=== PATIENT | female | born 1950 | race Two or more races ===

== ENCOUNTER → 2025-02-14 | Outpatient (CLI) | payer MEDICARE, MEDICAID | END | disposition home or self-care (01) | LOC: Rad HDHVI 14:37 | PROVIDERS: ATTEND Internal Medicine Cardiovascular Disease | DX: I73.9 Peripheral vascular disease, unspecified (principal); M79.661 Pain in right lower leg; M79.662 Pain in left lower leg; I10 Essential (primary) hypertension; E78.5 Hyperlipidemia, unspecified | CPT/HCPCS: 93925 ==

== ENCOUNTER → 2025-02-16 | Outpatient (CLI) | payer MEDICARE, MEDICAID ==
--- NOTE | 2025-02-16 13:35 | DVHSR ---
APPROVED REPORT EXAM: Two-dimensional and M-mode echocardiogram with Doppler and color Doppler. DIMENSIONS LVDd4.7 (3.8-5.7cm)LA (2D)3.8 (1.9-4.0cm)Aortic Root2.9 (2.0-3.7cm) LVDs3.2 (2.5-4.0cm)LA (MM) (1.9-4.0cm)Aortic Cusp Exc1.4 (1.5-2.0cm) EF (%) 60.0 (55-70%)Rt. Atrium3.4 (1.9-4.0cm)Asc. Aorta cm IVSd0.9 (0.7-1.1cm)RV (D) (1.8-2.4cm) PWd0.8 (0.7-1.1cm) Mitral Valve MitralMitral Stenosis E wave0.80m/sMV Mean GR.mmHg A wave1.20m/sMV Peak GR.mmHg E/A ratio0.72D MVAcm2 Aortic Valve Aortic ValveAortic Stenosis V10.90m/Amelia Mean GR.5mmHg V21.60m/Amelia Peak GR.11mmHg LVOT Diameter1.8 (1.8-2.4cm)Doppler AVA1.43cm2 Pulmonic Valve V20.70m/s Tricuspid Valve TR Velocity2.20m/s [id number] LEFT VENTRICLE The left ventricle is normal size. The left ventricle is normal in structure and function. The Ejection Fraction is within normal limits. RIGHT VENTRICLE The right ventricle is normal size. ATRIA The left atrial size is normal. The right atrium size is normal. The interatrial septum is intact with no evidence for an atrial septal defect. MITRAL VALVE The mitral valve is normal in structure and function. There is no mitral valve regurgitation noted. PULMONIC VALVE The pulmonic valve is not well visualized. TRICUSPID VALVE The tricuspid valve is grossly normal. AORTIC VALVE The aortic valve is calcified but appears to open well. No aortic regurgitation is present. GREAT VESSELS The aortic root is normal size. PERICARDIAL EFFUSION There is no pericardial effusion. Conclusion EF 50% MILD AV CALCIFICATION MILD AV STENOSIS MILD MAC
== END | disposition home or self-care (01) ==
LOC: Rad HDHVI 11:07
PROVIDERS: ATTEND Internal Medicine Cardiovascular Disease
DX: I35.8 Other nonrheumatic aortic valve disorders (principal); I10 Essential (primary) hypertension
CPT/HCPCS: 93306

== ENCOUNTER 2025-04-02 10:08 | Outpatient (CLI) | payer MEDICARE, MEDICAID ==
[2025-04-02 10:20] VITALS: BP 146/68; PULSE 68; RESP 16; O2SAT 98
[2025-04-02] MEDS ORDERED: SEMA2INJ3 SC (12:16)
[2025-04-02] MEDS ORDERED: INSU1INJ19 SC (12:16)
[2025-04-02] MEDS ORDERED: LOSA-534 PO (12:16)
[2025-04-02] MEDS ORDERED: METO-158 PO (12:16)
[2025-04-02] MEDS ORDERED: MULT-1018 PO (12:18)
--- NOTE | 2025-04-02 12:58 | DVH ---
EXAM: XY CHEST TWO VIEWS ROUTINE HISTORY: PRE OP CARDIAC CLEARANCE COMPARISON: None TECHNIQUE: Frontal and lateral views of the chest were performed. FINDINGS: No pneumothorax, pulmonary edema, pleural effusions, or consolidative infiltrates. The heart is not enlarged. The aortic arch is calcific. No fractures are identified about the bony thorax. There is mo derate thoracic degenerative disc disease. IMPRESSION: 1. No acute intrathoracic process. 2. Atherosclerotic vascular disease. 3. Thoracic spondylosis.
== END 2025-04-02 17:00 | disposition home or self-care (01) ==
LOC: Rad HDHVI 10:08
PROVIDERS: ATTEND Internal Medicine Cardiovascular Disease
DX: Z01.818 Encounter for other preprocedural examination (principal); I70.0 Atherosclerosis of aorta; I25.10 Atherosclerotic heart disease of native coronary artery without angina pectoris; I73.9 Peripheral vascular disease, unspecified; M51.34 Other intervertebral disc degeneration, thoracic region; M47.814 Spondylosis without myelopathy or radiculopathy, thoracic region
CPT/HCPCS: 71046; G0463

== ENCOUNTER 2025-04-05 06:59 | Day surgery (SDC) | payer MEDICARE, MEDICAID ==
[2025-04-02 12:59] LABS: Basophils # (auto) 0.1 10 ^3/uL (0-0.2); Basophils % (auto) 1.1 % (0.0-2.0); Eosinophils # (auto) 0.2 10 ^3/uL (0-0.8); Hematocrit 44.1 % (36.0-46.0); Hemoglobin 15.3 g/dL (12.2-16.2); Lymphocytes # (auto) 3.1 10 ^3/uL (0.4-5.4); Lymphocytes % (auto) 39.2 % (10.0-50.0); Mean Corpuscular Hgb Conc. 34.6 g/dL (32.0-36.0); Mean Corpuscular Volume 92.6 fL (80.0-100.0); Monocytes # (auto) 0.4 10 ^3/uL (0-1.3); Monocytes % (auto) 5.5 % (0.0-12.0); Neutrophils # (auto) 4.1 10 ^3/uL (1.6-8.6); Neutrophils % (auto) 52.2 % (37.0-80.0); Nucleated Red Blood Cells % 0.1 %; Platelet Count (auto) 226 10^3/uL (140-450); Red Blood Cells 4.76 10^6/uL (4.0-5.20); White Blood Cell 7.8 10^3/uL (4.4-10.8)
[2025-04-02 13:14] LABS: INR 1.01 (0.9-1.15); Partial Thromboplastin Time 24.8 SEC (24.5-34.5); Prothrombin Time 10.7 sec (9.3-11.8)
[2025-04-02 13:18] LABS: Potassium 4.5 mmol/L (3.5-5.1); Sodium 144 mmol/L (136-145)
[2025-04-02 13:19] LABS: Anion Gap 8 (5-15); Calcium 9.7 mg/dL (8.7-10.4); Carbon Dioxide 29 mmol/L (20-31)
[2025-04-02 13:21] LABS: Chloride 107 mmol/L (98-107)
[2025-04-02 13:25] LABS: BUN/Creatinine Ratio 22.9 (10.0-20.0); Blood Urea Nitrogen 19 mg/dL (9-23); Glucose 94 mg/dL (74-106)
[2025-04-05] VITALS (9 sets, daily range): BP systolic 140–167; BP diastolic 64–82; PULSE 68–75; RESP 12–14; TEMP 97.8; O2SAT 91–99
[~2025-04-05] VITALS: Ht 157.5 cm; Wt 60.8 kg
[~2025-04-05 06:59] MED LIST: INSU1INJ19 SC; LOSA-534 PO; METO-158 PO; MULT-1018 PO; SEMA2INJ3 SC
[2025-04-05] MEDS: IOHEXOL 350 MG/ML 100ML IJ ONE ×3 (07:41→09:00)
[2025-04-05] MEDS: LIDOCAINE 2%HCL (LOCAL ANESTH.) INJ 20ML MDV ONE ×2 (07:42→07:46)
[2025-04-05] MEDS: fentaNYL CITRATE 100 MCG/2 ML VL ONE (07:43)
[2025-04-05] MEDS: ANGIOMAX 250 MG VIAL IV ONE (07:43)
[2025-04-05] MEDS: SODIUM CHL 0.9% 50 ML ONE (07:44)
[2025-04-05] MEDS: MIDAZOLAM HCL 2MG/2ML 2ml VIAL (1mg/ml) ONE (07:44)
[2025-04-05] MEDS: NITROGLYCERIN 0.4MG/DOSE SPRAY 4.9GM ONE (08:19)
[2025-04-05] MEDS: CLOPIDOGREL BISULFATE 75 MG TAB ONE (09:01)
[2025-04-05] MEDS: ASPirin 325 MG TAB ONE (09:01)
--- NOTE | 2025-04-05 09:20 | DVHOP ---
DATE OF SURGERY: 04/05/2025 PROCEDURES PERFORMED: * Abdominal aortography * Selective left and right lower extremity angiography. DESCRIPTION OF PROCEDURE: The patient was prepped and draped under sterile condition. Then, 1% Xylocaine was used to anesthetize the right groin. Using a Cook needle right femoral artery was engaged, with Seldinger technique, a 6-Greek sheath in the right femoral artery. Using a 6-Greek sheath, angiography of the right lower extremity was performed. Then, using a RIM catheter, contralateral left iliac was then cannulated and angiography of the left lower extremity was performed. There were no complications. The patient tolerated the procedure well. RESULTS: * Right lower extremity angiography revealed patent right common iliac, patent right external and internal iliac, patent right superficial femoral artery, patent right profunda, patent right tibioperoneal trunk with 3-vessel distal runoff. * Left lower extremity, however, showed occluded a short segment of the left common iliac, but reconstitutes at the level of the external iliac, with patent left SFA, patent left profunda, patent left tibioperoneal trunk with 3-vessel distal runoff. At this time, the patient will require antegrade approach to revascularize the short occluded segment of the iliac on the left side. The patient will require antegrade approach for angioplasty of the left lower extremity occluded segment of the common left iliac. Boris Cote MD SA/OMAR TID: [id number] RECEIPT: [id number]
--- NOTE | 2025-04-05 09:22 | DVHOP ---
DATE OF SURGERY: 04/05/2025 PROCEDURES PERFORMED: * Selective left and right coronary angiography. * Ventriculogram. * Right iliac angiography. * FFR of the distal right coronary artery. * Shockwave thrombectomy of the obtuse marginal 1 with a 2.5 x 13 mm shock wave thrombectomy catheter followed by angioplasty with stent placement of the 2.75 x 22 mm Hubert Bulloch stent of the obtuse marginal one proximal segment. * Conscious sedation was given. DESCRIPTION OF PROCEDURE: The patient was prepped and draped in sterile condition. A 1% Xylocaine was used to anesthetize the right groin. Using Cook needle, the right femoral artery was engaged using Seldinger technique. A 6-Namibian sheath was placed in the right femoral artery. Using a 6-Namibian JL4 catheter and a 6-Namibian JR4 catheter, selective left and right coronary angiography was performed. Using a 6-Namibian pigtail catheter, ventriculogram was done. Then, the 6-Namibian diagnostic system was exchanged for a 6-Namibian interventional system. Using a 6-Namibian XP 3.0 guide catheter, left main was cannulated using a ChoICE PT extra support wire. The lesion was then crossed. It was then thrombectomized using a 2.5 x 13 mm thrombectomy shockwave catheter at 4 atmospheres. Following the dilatation, a 2.5 x 15 mm Euphora balloon was used to post dilate the artery as well. Following the dilatation, a 2.75 x 22 mm Deltona Bulloch stent was then deployed at 16 atmospheres. There were no complications. The patient tolerated the procedure well. FFR of the RCA was performed. RESULTS: * FFR of RCA in the distal segment showed an FFR of 0.67. The patient had proximal right coronary artery without any significant narrowing, but the distal right coronary artery had an 80% narrowing just before the bifurcation of the posterior descending artery and the posterior marginal branch. Left main was patent. Left anterior descending artery, mild diffuse disease without any flow restrictive lesion; however, obtuse marginal one of the circumflex had a 99% narrowing status post thrombectomy with angioplasty stent placement with a 2.75 x 22 mm Hubert Bulloch stent with less than 10% residual stenosis. Left ventricular function showed an EF of around 55% with an LVEDP of 18 mmHg with no gradient across the aortic valve. The patient at this time requires further intervention of the right coronary artery at a later date. MD BING Murillo TID: [id number] RECEIPT: [id number]
--- NOTE | 2025-04-05 09:48 | DVHHP ---
ADMIT DATE: 04/05/2025 HISTORY OF PRESENT ILLNESS: The patient, who is 74, has a history of tobacco use, continues to smoke approximately a pack a day, now with severe claudication symptoms, especially of the left lower extremity. The patient also has an inferior reversibility, therefore, because of the above presentation, I believe the patient should undergo coronary angiography as well as lower extremity angiography. It is going to be a lengthy procedure. I had a lengthy discussion with the patient concerning doing both procedures at the same time. I may not be able to revascularize both the lower extremity and the coronary in the event that I find lesions in both or even if it is a complex lesion, maybe only one artery would be intervened. She has multiple risk factors. She has marked elevation in cholesterol; however, HDL cholesterol is high, but because of the patient's history of tobacco use and diabetes, with a hemoglobin A1c of 7.2, there is high likelihood that the patient may require intervention and high likelihood of having both peripheral vascular disease as well as coronary artery disease. REVIEW OF SYSTEMS: No history of CVA. No history of seizure disorder. No history of any movement disorder. No visual disturbances. No hearing deficit. No GI symptomatology such as dysphagia, diarrhea, constipation, irritable bowel syndrome, or inflammatory bowel disease. Denies any liver disease. Denies any GI symptomatology. No bleeding diathesis such as hematemesis, hemoptysis, hematochezia, or melena or hematuria. No history of pneumonia, but positive for COPD, however. No previous history of myocardial infarction. No fever or chills at this time. PHYSICAL EXAMINATION: VITAL SIGNS: Blood pressure is 122/80, pulse is 70, O2 saturation 96% on room air. HEENT: Pupils are reactive. Funduscopic exam is benign. Sclerae icteric. No exudates noted. Tympanic membranes are negative. Oral mucosa moist. Posterior pharynx without any exudate. NECK: Supple. Carotid pulses are 2+ and symmetrical. Normal upstroke and contour. No nuchal rigidity. No cervical adenopathy. No JVD appreciated. Thyroid is within normal limits. PULMONARY: Clear to auscultation. Tympanic to percussion. No rhonchi, no wheezes, no egophony. CARDIOVASCULAR: Regular rate without S3, without S4. PMI is nondisplaced. ABDOMEN: Soft, nontender. Normal bowel sounds. Liver approximately 5 cm by percussion. NEUROLOGIC: The patient is intact. DTRs are 2+ and symmetrical. Cranial nerves 2-12 are within normal limits. EXTREMITIES: No Doppler pulses bilaterally. ASSESSMENT AND PLAN: The patient with: * Severe claudication symptoms of the left lower extremity. * History of tobacco use. * Now with inferior wall reversibility. The patient now to undergo coronary angiography angiogram as well as peripheral angiography as well. Boris Cote MD SA/OMAR/KELSIE TID: [id number] RECEIPT: [id number]
== END 2025-04-05 11:10 | disposition home or self-care (01) ==
LOC: CATH 06:59
PROVIDERS: ATTEND Internal Medicine Cardiovascular Disease
DX: I25.10 Atherosclerotic heart disease of native coronary artery without angina pectoris (principal); E11.51 Type 2 diabetes mellitus with diabetic peripheral angiopathy without gangrene; I74.5 Embolism and thrombosis of iliac artery; F17.210 Nicotine dependence, cigarettes, uncomplicated; E78.00 Pure hypercholesterolemia, unspecified; Z79.4 Long term (current) use of insulin; Z79.899 Other long term (current) drug therapy
CPT/HCPCS: 0523T; 36245; 36415; 75716; 80048; 85025; 85610; 85730; 92972; 92973; 93458; C1725; C1760; C1769; C1874; C1887; C1894; C9600; J0583; J1644; J2250; J3010; Q9967; 36246; 75710; 99152; 99153

== ENCOUNTER 2025-05-16 08:46 | Outpatient (CLI) | payer MEDICARE, MEDICAID ==
[2025-05-16 09:03] VITALS: BP 186/84; PULSE 71; RESP 16; O2SAT 96
[2025-05-16 09:19] VITALS: BP 188/80; PULSE 69; RESP 16; O2SAT 96
[2025-05-16] MEDS ORDERED: CHOL100079 OR (10:29)
[2025-05-16] MEDS ORDERED: CLOP75TA70 PO (10:29)
[2025-05-16] MEDS ORDERED: B COCAP3 OR (10:29)
--- NOTE | 2025-05-16 13:36 | DVH ---
XY CHEST TWO VIEWS ROUTINE CLINICAL HISTORY: PRE OP CARDIAC CLEARANCE COMPARISON: XY CHEST TWO VIEWS ROUTINE on DOS: 04/02/25 TECHNIQUE: Frontal and lateral view of the chest was obtained FINDINGS: Lines and Tubes: None Lungs: No focal consolidation. Pleura: No effusion. No pneumothorax. Cardiomediastinal contours: Unremarkable Bones: No acute osseous abnormality. IMPRESSION: No acute cardiopulmonary disease. Aortic atherosclerosis.
[2025-05-17] MEDS ORDERED: IOHEXOL 350 MG/ML 100ML IJ ONE (07:44)
[2025-05-17] MEDS ORDERED: HEPARIN IN NS 1000Units/500mL 1,500 ML ONE (07:44)
== END 2025-05-16 17:00 | disposition home or self-care (01) ==
LOC: Rad HDHVI 08:46
PROVIDERS: ATTEND Internal Medicine Cardiovascular Disease
DX: Z01.818 Encounter for other preprocedural examination (principal); I70.0 Atherosclerosis of aorta; I70.1 Atherosclerosis of renal artery
CPT/HCPCS: 71046; 93005; G0463

== ENCOUNTER 2025-05-17 07:13 | Day surgery (SDC) | payer MEDICARE, MEDICAID ==
[2025-05-16 11:37] LABS: Hematocrit 44.1 % (36.0-46.0); Hemoglobin 14.9 g/dL (12.2-16.2); Mean Corpuscular Hemoglobin 31.9 pg (28.0-32.0); Mean Corpuscular Volume 94.3 fL (80.0-100.0); Nucleated Red Blood Cells % 0.0 %
[2025-05-16 11:44] LABS: Chloride 106 mmol/L (98-107); Potassium 4.8 mmol/L (3.5-5.1); Sodium 141 mmol/L (136-145)
[2025-05-16 11:45] LABS: Anion Gap 7 (5-15); Calcium 9.3 mg/dL (8.7-10.4); Carbon Dioxide 28 mmol/L (20-31)
[2025-05-16 11:48] LABS: INR 1.0 (0.9-1.15); Partial Thromboplastin Time 24.2 SEC (24.5-34.5); Prothrombin Time 10.6 sec (9.3-11.8)
[2025-05-16 11:50] LABS: BUN/Creatinine Ratio 30.0 (10.0-20.0); Blood Urea Nitrogen 21 mg/dL (9-23); Glucose 114 mg/dL (74-106)
[2025-05-17] VITALS (12 sets, daily range): BP systolic 111–207; BP diastolic 57–90; PULSE 69–77; RESP 17–18; TEMP 98.3; O2SAT 94–96
[~2025-05-17] VITALS: Ht 160 cm; Wt 63.0 kg
[~2025-05-17 07:13] MED LIST changes: +B COCAP3 OR; +CHOL100079 OR; +CLOP75TA70 PO
[2025-05-17] MEDS ORDERED: IOHEXOL 350 MG/ML 100ML IJ ONE (07:14)
[2025-05-17] MEDS: fentaNYL CITRATE 100 MCG/2 ML VL ONE (08:27)
[2025-05-17] MEDS: ANGIOMAX 250 MG VIAL IV ONE (08:27)
[2025-05-17] MEDS: MIDAZOLAM HCL 2MG/2ML 2ml VIAL (1mg/ml) ONE ×2 (08:27→10:01)
[2025-05-17] MEDS: LIDOCAINE 2%HCL (LOCAL ANESTH.) INJ 20ML MDV ONE ×2 (08:28→10:02)
[2025-05-17] MEDS: SODIUM CHL 0.9% 50 ML ONE (08:28)
[2025-05-17] MEDS: CLOPIDOGREL BISULFATE 75 MG TAB ONE (11:00)
[2025-05-17] MEDS: ISOSORBIDE MONONITRATE ER 60 MG TAB PO ONE (12:37)
--- NOTE | 2025-05-17 12:40 | DVHOP ---
DATE OF SURGERY: 05/17/2025 PROCEDURES PERFORMED: * Selective left and right lower extremity angiography. * Antegrade and retrograde approach to cannulate the left common femoral. * Thrombectomy with shockwave angioplasty of the left common iliac and left external iliac. * Stent placement of the left common iliac and left external iliac. * Conscious sedation. * Ultrasound access was attempted prior to retrograde approach. DESCRIPTION OF PROCEDURE: The patient was prepped and draped in sterile conditions. 1% Xylocaine used to anesthetize the left groin. We were not able to cannulate the left groin. Therefore, right groin was cannulated and abdominal aortography was performed with RIM catheter and we were able to visualize the left common femoral. Following visualization of common femoral, we were able to cannulate the left common femoral. A 6-Swedish sheath was introduced in the left common femoral via Seldinger technique. Then, using a quick-cross catheter and a soft angle Terumo glide catheter, we were able to cross the occluded segment of the left common and external iliac. Once that was crossed, 0.014 wire was then introduced through a 0.018 quick-cross catheter and the entire length of the iliac, common iliac and external iliac was then thrombectomized, shockwave treated with 7 mm x 60 mm Shockwave balloon. A total of three treatments were applied. Once that was done, again, using the contralateral access, we did an angiogram to see the patency that it was in the true lumen was visualized. Following that, a 7 mm x 57 mm Express stent was deployed through the left access and was deployed at the ostium of the left common iliac extending into the external iliac. Balloon angioplasty was done at 12 atmospheres. Following that, abdominal aortography and runoff was performed. There were no complications. The patient tolerated the procedure well. Following revascularization of the left iliac and left external iliac with stent placement and thrombectomy, the patient had normalization of pressure. There were no complications. The patient tolerated the procedure well. Right and left femoral arteriotomy site were then closed using the AngioSeal device. RESULTS: * Right lower extremity angiography revealed patent right common iliac, patent right external internal iliacs, patent right common femoral, patent right superficial femoral artery and the profunda arteries. * Left lower extremity showed an occluded ostial of the left iliac, but reconstitutes at the level of the common femoral. Using antegrade retrograde approach, we were able to cannulate the left common femoral, thrombectomy and stent placement with a 7 mm x 57 mm Express stent. There is now complete revascularization and normalization of pressures. * The patient's abdominal aortography once again was performed. It shows patent left iliac, patent internal and external iliac, patent profunda, patent superficial femoral artery. The abdominal catheter was placed at the level of the left renal artery. CONCLUSION: The patient has successful thrombectomy of the left iliac with stent placement. The iliac pre-intervention was 100% occluded, post-intervention less than 10% occlusion. We will continue to follow the patient. Boris Cote MD SA/BRIGITTE TID: [id number] RECEIPT: [id number]
--- NOTE | 2025-05-17 12:43 | DVHHP ---
ADMIT DATE: 05/17/2025 HISTORY OF PRESENT ILLNESS: The patient with history of hypertension, history of angiography with angioplasty and stent placement in the past. Family history is significant for father with coronary artery disease. History of tobacco use, smokes approximately a pack a day despite all encouragement to discontinue to smoke, she continues ____ noncompliant. She has very high risk for peripheral vascular disease, and in fact she underwent peripheral angiography 6 months ago showed the patient to have patent right lower extremity angiography, but left the patient's iliac was chronically occluded. At the ostium extending into the proximal segment of the common iliac. The patient is now to undergo revascularization of the left iliac artery by retrograde cannulation. May require antegrade imaging from the right side to localize the artery for access. Risks and benefits were explained to the patient. The patient understands and agrees. She is also diabetic as well, but currently ____ dialysis. No any renal insufficiency at this time. No history of myocardial infarction. CURRENT MEDICATIONS: Include aspirin, Plavix, losartan, metoprolol, and Ozempic. Last dose was taken on 05/12/2025. REVIEW OF SYSTEMS: She denies any fever, chills, melena, hematochezia, hematemesis, or hemoptysis. She does not have rheumatologic disease. No history of inflammatory bowel disease or irritable bowel syndrome. History of COPD, however, no history of CVA or TIA symptoms. No seizure disorder. No movement disorder. She has osteoarthritis, but no evidence of any kind of myopathy. PHYSICAL EXAMINATION: VITAL SIGNS: Blood pressure is 148/72, pulse of 67 and regular. HEENT: Pupils are reactive. Funduscopic exam shows no AV nicking. No exudates. No papilledema. Extraocular muscles are intact. Sclerae anicteric. NECK: No JVD appreciated. Carotid pulses are 2+ and symmetrical. Normal upstroke and contour. No bruits appreciated. No cervical adenopathy. No supraclavicular adenopathy. Oral mucosa moist. Posterior pharynx without any exudate. PULMONARY: Clear to auscultation with scattered rhonchi at the bases. CARDIOVASCULAR: Regular rate. PMI ____. There is a 2/6 systolic crescendo-decrescendo murmur along the left sternal border. ABDOMEN: Soft, nontender. Normal bowel sounds. EXTREMITIES: 1+ pulses on the right, Doppler pulses on the left. IMAGING STUDIES: Angiogram shows occluded common iliac on the left side, but collateral circulation was noted at the level of the common femoral. ASSESSMENT AND PLAN: The patient is now to undergo retrograde cannulation of the left iliac and possible angioplasty with stent placement. It may require antegrade exposure from the right side to visualize the occluded iliac appropriately for cannulation purposes. Risks and benefits were explained to the patient. Boris Cote MD SA/CIARAN/CRIS TID: [id number] RECEIPT: [id number]
--- NOTE | 2025-05-18 07:30 | DVHDS ---
DATE OF DISCHARGE: 05/17/2025 DISCHARGE DIAGNOSES: Peripheral vascular disease, COPD, continued tobacco use, underwent successful thrombectomy and stent placement of the left common iliac and left external iliac via the retrograde approach. The patient also underwent thrombectomy as well and stayed stable at the time of discharge. DISPOSITION: Home. Dual antiplatelet therapy will be maintained. We will continue to follow the patient. If the patient develops any chest pain, shortness of breath, bleeding diathesis, abdominal pain or lower extremity pain, groin pain, the patient is to contact me or come to the Emergency Room. Boris Cote MD SA/CHINO/CRIS TID: [id number] RECEIPT: [id number]
== END 2025-05-17 15:40 | disposition home or self-care (01) ==
LOC: CATH 07:13
PROVIDERS: ATTEND Internal Medicine Cardiovascular Disease
DX: E11.51 Type 2 diabetes mellitus with diabetic peripheral angiopathy without gangrene (principal); I70.92 Chronic total occlusion of artery of the extremities; I74.5 Embolism and thrombosis of iliac artery; I10 Essential (primary) hypertension; F17.210 Nicotine dependence, cigarettes, uncomplicated; Z79.4 Long term (current) use of insulin; Z79.899 Other long term (current) drug therapy; Z88.1 Allergy status to other antibiotic agents; Z88.2 Allergy status to sulfonamides; Z88.5 Allergy status to narcotic agent; Z82.49 Family history of ischemic heart disease and other diseases of the circulatory system
CPT/HCPCS: 36415; 37186; 75630; 80048; 85025; 85610; 85730; C1725; C1760; C1769; C1876; C1887; C1894; C9765; J0583; J2250; J3010; J7030; Q9967; 99152; 99153